=== PATIENT | female | born 1975 | race Asian ===

== ENCOUNTER 2017-01-29 22:05 | Emergency (ER) | payer SELFPAY ==
[~2017-01-29] VITALS: Ht 160 cm; Wt 67.1 kg
[2017-01-29 22:19] VITALS: BP 144/58
== END 2017-01-29 22:44 | disposition home or self-care (01) ==
LOC: ER 22:11
DX: J02.9 Acute pharyngitis, unspecified (principal)
CPT/HCPCS: 99283; A4606; Z7610